=== PATIENT | female | born 1935 | race Caucasian/White ===

== ENCOUNTER 2018-03-26 12:57 | Emergency (ER) | payer OTHER ==
[~2018-03-26] VITALS: Ht 152.4 cm; Wt 51.3 kg
[~2018-03-26 12:57] MED LIST: ACETAMINOPHEN650 M1 PO; ALENDRONATE SOD70 M1 PO; ARICEPT10 M1 PO; ASPIRIN EC325 M2 PO; AUGMENTIN 875 M1 TAB PO; HCTZ/LISINOPRIL1 TA1 PO; LEVOTHYROXIN0.075 M1 PO; LIPITOR40 M1 PO; MOBIC7.5 M1 PO; NORVASC 5MG TAB5 MG PO; PREDNISONE10 MG PO; SYMBICORT 80/4.1 PUF INH; VENTOLIN1 PUF INH; VITAMIN B COMP1 EAC1 PO; VITAMIN D33000 UNIT PO
--- NOTE | 2018-03-26 15:03 | ED GENERAL ADULT ---
History of Present Illness General Chief Complaint: General Adult Stated Complaint: ?INFECTED WOUND TO R CALF Source: patient Exam Limitations: dementia Vital Signs & Intake/Output Vital Signs & Intake/Output Vital Signs Date Time Temp Pulse Resp B/P B/P Pulse O2 O2 Flow FiO2 Mean Ox Delivery Rate 03/26 1727 98.2 65 20 159/70 100 Room Air 03/26 1538 97.9 62 18 145/62 98 Room Air 03/26 1455 Room Air 03/26 1301 98.0 76 20 151/63 97 Room Air Allergies Coded Allergies: lisinopril (UNKNOWN 03/26/18) Reconcile Medications Amlodipine Besylate (Norvasc) 5 MG TABLET 1 TAB PO DAILY HEART (Reported) Aspirin (Ecotrin*) 325 MG TABLET.DR 0.5 TAB PO DAILY HEART HEALTH (Reported) Atorvastatin Calcium (Lipitor) 40 MG TABLET 1 TAB PO DAILY CHOLESTEROL ( Reported) Cholecalciferol (Vitamin D3) (Vitamin D3) 3,000 UNIT TABLET 1 TAB PO DAILY VITAMIN SUPPORT (Reported) Donepezil HCl (Aricept) 10 MG TABLET 1 TAB PO QPM MEMORY (Reported) Doxycycline Hyclate 100 MG TABLET 1 TAB PO BID cellulitis Levothyroxine Sodium 75 MCG TABLET 1 TAB PO DAILY AC THYROID (Reported) Quetiapine Fumarate 25 MG TABLET 0.5 TAB PO BID MENTAL HEALTH (Reported) Triage Note: PT TO ED WITH DAUGHTER FOR INFECTED WOUND TO RIGHT CALF. PT BUMPED IT ON A TABLE (NOT SURE WHEN). DAILY. DENIES PAIN. Triage Nurses Notes Reviewed? yes Onset: Abrupt Duration: day(s): Timing: constant HPI: 82 y/o female with h/o alzheimer's, HTN, HLD, and hypothyroid presenting with wound infection. Pt presents with her daughter who reports the pt hit her right leg on a table approximately one week ago. The patient did not tell anyone of the injury, and the daughter did not notice the wound until today. Denies fevers, purulent drainage, nausea, vomiting. Unsure of last tetanus. (Georgina Longoria) Past History Travel History Traveled to [place] past 21 day No Medical History Any Pertinent Medical History? see below for history Neurological: Alzheimer's disease, MINI STROKE EENT: NONE Cardiovascular: hypertension, hyperlipidemia Respiratory: NONE Gastrointestinal: NONE Hepatic: NONE Renal: NONE Musculoskeletal: NONE Psychiatric: NONE Endocrine: HYPOTHYROIDISM Cancer(s): NONE FINGERNAIL FORMER/Reproductive: NONE Other Medical Hx: HYPOTHYROID History of MRSA: No History of VRE: No History of CDIFF: No Tetanus Vaccine: 10/18/14 Surgical History Surgical History: non-contributory Psychosocial History Who do you live with Family Services at Home None What is your primary language Faroese Tobacco Use: Current Daily Use Daily Tobacco Use Amount/Type: => 5 Cigarettes daily ETOH Use: heavy use Illicit Drug Use: denies illicit drug use Family History Family History, If Any: SISTER Relation not specified for: FH: diabetes mellitus Hx Contributory? No (Georgina Lognoria) Review of Systems Review of Systems Constitutional: Reports: no symptoms. EENTM: Reports: no symptoms. Respiratory: Reports: no symptoms. Cardiovascular: Reports: no symptoms. GI: Reports: no symptoms. Genitourinary: Reports: no symptoms. Musculoskeletal: Reports: see HPI. Skin: Reports: no symptoms. Neurological/Psychological: Reports: no symptoms. Hematologic/Endocrine: Reports: no symptoms. Immunologic/Allergic: Reports: no symptoms. All Other Systems: Reviewed and Negative (Georgina Longoria) Physical Exam Physical Exam General Appearance: well developed/nourished, no apparent distress, alert, awake , comfortable Head: atraumatic, normal appearance Eyes: Bilateral: normal appearance. Neck: normal inspection Respiratory: normal breath sounds, lungs clear Cardiovascular: regular rate/rhythm Gastrointestinal: soft, non-tender Back: normal inspection Extremities: normal range of motion, on exam of the right lower extremity there is a skin avulsion that has begun to heal by primary intention to the medial aspect of the mid lower leg, there is trace surrounding erythema, but no purulent drainage. There is tenderness to palpation over the mid lower leg. Sensation intact. Motor strength 5 out of 5 against gravity. Distal pulses 2+. Neurologic/Psych: awake, alert, normal mood/affect Skin: normal color, warm/dry Core Measures ACS in differential dx? No CVA/TIA Diagnosis: No Sepsis Present: No Sepsis Focused Exam Completed? No (Georgina Longoria) Progress Differential Diagnoses I considered the following diagnoses in my evaluation of the patient: [Skin avulsion versus laceration versus wound infection versus tib-fib fracture versus sepsis] Plan of Care: Orders Procedure Date/time Status LACTIC ACID 03/26 1526 Complete BLOOD CULTURE 03/26 1503 Active COMPREHENSIVE METABOLIC PANEL 03/26 1311 Complete CBC WITHOUT DIFFERENTIAL 03/26 1311 Complete Laboratory Tests 03/26/18 1803: Lactic Acid Cancelled 03/26/18 1526: Anion Gap 11, Estimated GFR 53 L, BUN/Creatinine Ratio 16.0, Glucose 91, Lactic Acid 1.0, Calcium 9.4, Total Bilirubin 0.4, AST 19, ALT 17, Alkaline Phosphatase 80, Total Protein 6.8, Albumin 3.9, Globulin 2.9, Albumin/Globulin Ratio 1.3, CBC w Diff NO MAN DIFF REQ, RBC 4.32, MCV 90.6, MCH 30.9, MCHC 34.1, RDW 14.1, MPV 10.2, Gran % 64.3, Lymphocytes % 24.6, Monocytes % 9.8 H, Eosinophils % 0.6 , Basophils % 0.7, Absolute Granulocytes 5.8, Absolute Lymphocytes 2.2, Absolute Monocytes 0.9 H, Absolute Eosinophils 0.1, Absolute Basophils 0.1 03/26/18 1503: Lactic Acid Cancelled Microbiology 03/26 1538 BLOOD: Blood Culture - RECD 03/26 1526 BLOOD: Blood Culture - RECD Labs unremarkable, no leukocytosis, lactate and vital signs are within normal limits. Likely with isolated cellulitis, low concern for sepsis. Given single dose of IV vancomycin in the ED, and will discharge home with Rx doxycycline. X -ray unremarkable, no signs of fracture. Tetanus updated. The patient's wound would have likely needed suture repair at the time of occurrence, but has already begun to heal by primary intention. Given contact information to follow up with plastics. Counseled on wound care and strict return precautions. Initial ED EKG: none (Georgina Longoria) Departure Departure Disposition: HOME OR SELF CARE Condition: Stable Clinical Impression Primary Impression: Laceration of leg Secondary Impressions: Cellulitis Referrals: Jayjay HENDERSON,Dino Dang MD,[place] (PCP/Family) Additional Instructions: Take doxycycline as prescribed. Keep the wound clean and dry. Follow-up with your primary care provider for reevaluation. Return to the emergency department for any new or worsening symptoms. Departure Forms: Customer Survey General Discharge Information Prescriptions: Current Visit Scripts Doxycycline Hyclate 1 TAB PO BID #20 TAB (Georgina Longoria) PA/EMPLOYEE RELATIONS ADVISOR Co-Sign Statement Statement: ED Attending supervision documentation- [x] I saw and evaluated the patient. I have also reviewed all the pertinent lab results and diagnostic results. I agree with the findings and the plan of care as documented in the PA's/EMPLOYEE RELATIONS ADVISOR's documentation. [] I have reviewed the ED Record and agree with the PA's/EMPLOYEE RELATIONS ADVISOR's documentation. [] Additions or exceptions (if any) to the PAs/EMPLOYEE RELATIONS ADVISOR's note and plan are summarized below: [] (Jean-Pierre Joseph DO) Critical Care Note Critical Care Note Critical Care Time: non-applicable (Georgina Longoria)
[2018-03-26] MEDS ORDERED: LEVOTHYROXINE75 MCG PO (15:36)
[2018-03-26] MEDS ORDERED: QUETIAPINE FUMA25 M1 PO (15:36)
[2018-03-26] MEDS ORDERED: NORVASC5 M1 PO (15:37)
[2018-03-26 16:08] LABS: ABSOLUTE BASOPHIL COUNT 0.1 /CUMM (0.0-0.2); ABSOLUTE EOSINOPHIL COUNT 0.1 /CUMM (0.0-0.7); ABSOLUTE GRANULOCYTE CT 5.8 /CUMM (1.4-6.5); ABSOLUTE LYMPH COUNT 2.2 /CUMM (1.2-3.4); ABSOLUTE MONOCYTE COUNT 0.9 /CUMM (0.10-0.60); BASOPHIL % 0.7 % (0.0-2.0); EOSINOPHIL % 0.6 % (0-5); GRANULOCYTE % 64.3 % (42.2-75.2); HEMATOCRIT 39.2 % (37-47); MEAN CORPUSCULAR HGB 30.9 PG (27.0-31.0); MEAN CORPUSCULAR HGB CONC 34.1 G/DL (33.0-37.0); MEAN CORPUSCULAR VOLUME 90.6 FL (81.0-99.0); MEAN PLATELET VOLUME 10.2 FL (7.4-10.4); PLATELET COUNT 272 /CUMM (130-400); RBC DISTRIBUTION WIDTH 14.1 % (11.5-14.5); RED BLOOD CELL CT 4.32 /CUMM (4.20-5.40)
[2018-03-26 17:27] VITALS: BP 159/70
--- NOTE | 2018-03-26 17:38 | RADIOLOGY REPORT ---
2 VIEWS OF THE RIGHT TIBIA/FIBULA CLINICAL INFORMATION: Stroke ligament table. COMPARISON: None TECHNIQUE: AP and lateral views of the right tibia and fibula were obtained. FINDINGS: There are no fractures. The bony articulations are maintained. Calcifications within the soft tissues. IMPRESSION: No acute osseous findings.
[2018-03-26] MEDS ORDERED: DOXYCYCLINE HY100 M4 PO (17:48)
== END 2018-03-26 18:12 ==
LOC: ERH 12:57
PROVIDERS: Physician Assistant
DX: S81.812A Laceration without foreign body, left lower leg, initial encounter (principal); L03.115 Cellulitis of right lower limb; W22.8XXA Striking against or struck by other objects, initial encounter; Y92.9 Unspecified place or not applicable; Y93.9 Activity, unspecified
CPT/HCPCS: 73590-RT; 87040; 90714; 96374